=== PATIENT | male | born 1970 | race Caucasian/White ===

== ENCOUNTER → 2021-01-16 14:32 | Outpatient (BNVA) | payer OTHER, SELFPAY | PROVIDERS: PCP Internal Medicine; Visit Provider Urology ==

== ENCOUNTER → 2021-06-17 12:05 | Outpatient (BNVA) | payer OTHER, SELFPAY | PROVIDERS: PCP Internal Medicine; Visit Provider Physician Assistant Medical | DX: Z77.21 Contact with and (suspected) exposure to potentially hazardous body fluids (principal) | CPT/HCPCS: 36415; 84450; 84460; 85025; 86706; 86803; 99203 ==

== ENCOUNTER → 2021-06-19 09:05 | Outpatient (BNVA) | payer OTHER, SELFPAY | PROVIDERS: PCP Internal Medicine; Visit Provider Physician Assistant | DX: Z77.21 Contact with and (suspected) exposure to potentially hazardous body fluids (principal) | CPT/HCPCS: 99213 ==

== ENCOUNTER → 2021-07-01 14:47 | Outpatient (BNVA) | payer OTHER, SELFPAY | PROVIDERS: PCP Internal Medicine | DX: Z77.21 Contact with and (suspected) exposure to potentially hazardous body fluids (principal) | CPT/HCPCS: 36415; 82150; 82565; 84450; 84460; 85025; 99213 ==

== ENCOUNTER → 2021-07-17 08:52 | Outpatient (BNVA) | payer OTHER, SELFPAY | PROVIDERS: PCP Internal Medicine | DX: Z77.21 Contact with and (suspected) exposure to potentially hazardous body fluids (principal) | CPT/HCPCS: 36415; 82150; 82565; 84450; 84460; 85025; 99213 ==

== ENCOUNTER → 2021-08-02 14:38 | Outpatient (BNVA) | payer OTHER, SELFPAY | PROVIDERS: PCP Internal Medicine | DX: Z77.21 Contact with and (suspected) exposure to potentially hazardous body fluids (principal) | CPT/HCPCS: 36415; 84450; 84460; 87389; 90746; 99211 ==

== ENCOUNTER → 2021-09-11 11:20 | Outpatient (BNVA) | payer OTHER, SELFPAY | PROVIDERS: PCP Internal Medicine | DX: Z77.21 Contact with and (suspected) exposure to potentially hazardous body fluids (principal) | CPT/HCPCS: 36415; 84450; 84460; 86803; 87389; 90746; 99211 ==

== ENCOUNTER 2021-12-16 14:33 | Outpatient (REF) | payer OTHER, SELFPAY ==
[2021-12-16 15:50] LABS: Alanine Aminotransferase 45 U/L (0-40); Aspartate Amino Transferase 22 U/L (5-37)
[2021-12-18 07:50] LABS: HIV AB/AG Nonreactive (Nonreactive); HIV Num 1 0.05 S/CO (0.00-0.99)
[2021-12-19 09:40] LABS: ~HepC Num1 0.13 S/CO (0.00-0.79); ~Hepatitis C Antibody Nonreactive (Nonreactive)
== END 2021-12-16 14:34 | disposition home or self-care (01) ==
LOC: WCCF 14:33
PROVIDERS: PCP Internal Medicine; Visit Provider Internal Medicine
DX: Z77.21 Contact with and (suspected) exposure to potentially hazardous body fluids (principal)
CPT/HCPCS: 36415; 84450; 84460; 86803; 87389; 99211

== ENCOUNTER → 2022-01-30 14:22 | Outpatient (BNVA) | payer OTHER, SELFPAY | PROVIDERS: PCP Internal Medicine | DX: Z77.21 Contact with and (suspected) exposure to potentially hazardous body fluids (principal) | CPT/HCPCS: 99211 ==

== ENCOUNTER → 2022-03-12 14:53 | Outpatient (BNVA) | payer OTHER, SELFPAY | PROVIDERS: PCP Internal Medicine | DX: Z77.21 Contact with and (suspected) exposure to potentially hazardous body fluids (principal); Z23 Encounter for immunization | CPT/HCPCS: 36415; 86706 ==